=== PATIENT | female | born 1990 | race Two or more races ===

== ENCOUNTER 2021-06-03 21:40 | Emergency (ER) | payer OTHER ==
[~2021-06-03] VITALS: Ht 152.4 cm; Wt 56.4 kg
[2021-06-04] MEDS ORDERED: ACETAMINOPHEN 500 MG TABLET PO ONE
[2021-06-04] MEDS ORDERED: KETOROLAC TROMETHAMINE 30 MG/ML VIAL IM ONE
[2021-06-04 02:21] VITALS: BP 137/69
== END 2021-06-04 02:30 | disposition home or self-care (01) ==
LOC: EMS 21:43
DX: S39.012A Strain of muscle, fascia and tendon of lower back, initial encounter (principal); S70.01XA Contusion of right hip, initial encounter; W19.XXXA Unspecified fall, initial encounter; Y93.89 Activity, other specified; Y92.89 Other specified places as the place of occurrence of the external cause; Y99.8 Other external cause status
CPT/HCPCS: 72131; 73130 ×2; 73502; 73552; 73562; 73590; 81025; 96372; 99284; J1885; 99283

== ENCOUNTER 2023-10-24 20:02 | Emergency (ER) | payer OTHER ==
[~2023-10-24] VITALS: Ht 154.9 cm; Wt 64.4 kg
[2023-10-24 20:09] VITALS: TEMP 98.4
[2023-10-25] MEDS ORDERED: KETOROLAC TROMETHAMINE 30 MG/ML VIAL IM ONE (01:00)
[2023-10-25] MEDS ORDERED: KETOROLAC TROMETHAMINE 60 MG/2 ML VIAL IM ONE (01:00)
[2023-10-25 01:45] LABS: APPEARANCE,URINE CLEAR (CLEAR); BILIRUBIN,URINE NEGATIVE (NEGATIVE); COLOR,URINE COLORLESS (YELLOW); GLUCOSE, URINE (UA) NEGATIVE (NEGATIVE); KETONES,URINE NEGATIVE (NEGATIVE); LEUKOCYTE ESTERASE ,URINE TRACE (NEGATIVE); NITRATE,URINE NEGATIVE (NEGATIVE); OCCULT BLOOD,URINE NEGATIVE (NEGATIVE); PH,URINE 6.5 (5.0-8.0); PROTEIN,URINE NEGATIVE (NEGATIVE); SPECIFIC GRAVITIY, URINE 1.005 (1.003-1.030); UROBILINOGEN,URINE <=1.0 mg/dL (<=1.0)
[2023-10-25 01:50] LABS: HCG,QUAL URINE NEGATIVE (NEGATIVE)
[2023-10-25 01:59] LABS: BACTERIA,URINE None Seen /HPF (None Seen); RBC,URINE None Seen /HPF (0-2); SQUAMOUS EPITHELIAL CELL,UR Few /LPF (None Seen); WBC,URINE 0-2 /HPF (0-5)
[2023-10-25] MEDS ORDERED: METH-812 PO (02:31)
[2023-10-25] MEDS ORDERED: IBUP-1492 PO (02:31)
[2023-10-25 02:34] VITALS: BP 112/70; PULSE 66; RESP 15
== END 2023-10-25 02:35 | disposition home or self-care (01) ==
LOC: EMS 20:04
DX: M54.9 Dorsalgia, unspecified (principal)
CPT/HCPCS: 99283; 81001; 84703; 96372; J1885